=== PATIENT | male | born 1960 | race Caucasian/White ===

== ENCOUNTER 2016-06-05 11:34 | Emergency (ER) | payer OTHER ==
[2016-06-05] MEDS ORDERED: IOPAMIDOL 370 (76%) 100 ML VIAL IV ONE (11:35)
--- NOTE | 2016-06-05 12:11 | RAD ---
History: Cough for 2 days. Comparison: None. Technique: 2 views Findings: The soft tissue and bony structures are unremarkable. The heart size is appropriate. No infiltrate, effusion or pneumothorax is observed. The hilar and mediastinal structures are normal. Impression: 1. No active intra-thoracic disease.
[2016-06-05] MEDS ORDERED: ALBUTEROL/IPRATROPIUM 2.5/0.5 MG 3 ML/EACH DOSE ONE (13:58)
[2016-06-05 14:25] LABS: VENOUS BLOOD GAS BASE EXCESS 0.3 mmol/L (-2.0-2.0); VENOUS BLOOD GAS HCO3 21.8 mmol/L (22.0-27.0)
[2016-06-05 14:29] LABS: ABSOLUTE NEUTROPHIL COUNT 9.4 K/mm3 (1.8-7.7); BASO % 0.2 % (0.2-1.0); HEMATOCRIT 40.4 % (32.0-52.0); IMM NEUT # 0.1 K/mm3 (0-0.2); IMM NEUT% 0.6 % (0-1); LYMPH # 0.9 (1.0-4.8); LYMPH % 8.3 % (15-45); MEAN CELL VOLUME 90.6 fl (80.0-94.0); MEAN CORPUSCULAR HEMOGLOBIN 31.4 pg (27.0-31.0); MEAN CORPUSCULAR HGB CONC 34.7 g/dl (33.0-37.0); MEAN PLATELET VOLUME 9.5 fl (7.4-10.4); MONO # 0.9 (0.0-0.8); MONO % 8.1 % (4-12); NEUT % 82.8 % (43-75); PLATELET COUNT 177 K/mm3 (130-400); RED CELL DISTRIBUTION WIDTH 12.2 % (11.5-14.5)
[2016-06-05] MEDS ORDERED: LACTATED RINGERS 1,000 ML ONE (14:31)
[2016-06-05] MEDS ORDERED: DEXAMETHASONE SOD PHOS 10 MG/1 ML VIAL ONE (14:31)
[2016-06-05] MEDS ORDERED: ACETAMINOPHEN 325 MG TABLET ONE (14:31)
[2016-06-05 14:58] LABS: ALB/GLOB RATIO 1.2 (>1.0); ALBUMIN 3.8 gm/dL (3.5-5.7); CALCIUM 8.6 mg/dL (8.6-10.3)
[2016-06-05] MEDS ORDERED: IPRATROPIUM BROMIDE 0.5 MG/2.5 ML DOSE ONE (15:25)
[2016-06-05] MEDS ORDERED: ALBUTEROL SULFATE 5MG/ML INHALANT 20 ML BOT ONE (15:25)
--- NOTE | 2016-06-05 16:20 | CT ---
CTA CHEST FOR PE History: Dyspnea. Comparison: None. Procedure: 1 mm axial images were obtained through the chest following the administration of 80cc's of Isovue-370 intravenous contrast. Stacked reconstructed 3 mm images were then photographed in the axial, coronal and sagittal planes. 3-D reconstructed images were also performed on the [employer] workstation. Findings: Images demonstrate a normal appearance of the visualized thyroid gland. No significant mediastinal adenopathy is visualized. Soft tissue prominence within the hilar regions suggest the presence of mild bilateral hilar adenopathy. The aortic caliber is within expected. There is no evidence to suggest an aortic dissection. The heart size is normal. No pericardial abnormalities are seen. The visualized esophagus appears to be appropriate. The pulmonary arterial tree is adequately opacified. No definite filling defects are identified within the main, primary or secondary pulmonary arterial branches to suggest presence of a pulmonary embolus. Evaluation of the lung parenchymal windows demonstrate a normal appearance of the central main airways. There are biapical pulmonary emphysematous changes identified. There is evidence of some bronchial wall thickening primarily affecting the lower lung zones with associated bronchiectasis. A degree of mucous plugging is also suggested within one of the posterior segments to the left lower lobe. Scattered bibasilar patchy airspace changes are also present. No effusion or pneumothorax is seen. Scans through the upper abdomen are unremarkable. Multilevel thoracic degenerative changes are present. Impression: 1. No definite findings of a pulmonary embolus visualized. 2. Mild bilateral hilar adenopathy. 3. Evidence of bronchial wall thickening and associated bronchiectasis primarily affecting the lower lung zones with a degree of likely mucous plugging noted within one of the posterior segment of the left lower lobe. Associated bibasilar patchy airspace changes are also present within the lower lobes which may reflect atelectasis, infection or inflammation. No effusion or pneumothorax is seen. 4. Multilevel thoracic degenerative changes.
== END 2016-06-05 17:26 | disposition home or self-care (01) ==
LOC: ED 11:34
DX: J18.9 Pneumonia, unspecified organism (principal); R50.9 Fever, unspecified; J43.9 Emphysema, unspecified; Z87.891 Personal history of nicotine dependence
CPT/HCPCS: 83605; 85379; 82803; 85025; 80053; 84484; 71020; 71275; 87804; 94640; 94644; 99284 ×2; 96374; 93005; J7645; J1100; A9270; J7120; Q9967